=== PATIENT | female | born 1980 | race Caucasian/White ===

== ENCOUNTER 2018-11-05 07:49 | Inpatient (IN) | payer OTHER ==
[~2018-11-05] VITALS: Ht 170.2 cm; Wt 79.7 kg
[~2018-11-05 07:49] MED LIST: FOLI-49 PO; PRENAT PO
[2018-11-05 08:20] VITALS: Ht 170.2 cm; Wt 79.7 kg
[2018-11-05] MEDS ORDERED: LIDOCAINE 1% (MPF) 30 ML INJ INJ PRN (08:30)
[2018-11-05] MEDS ORDERED: BUTORPHANOL 2 MG INJ IV PRN (08:30)
[2018-11-05] MEDS ORDERED: CARBOPROST 250 MCG INJ IM PRN (08:30)
[2018-11-05] MEDS ORDERED: IBUPROFEN 600 MG TAB PO PRN (08:30)
[2018-11-05] MEDS ORDERED: METHYLERGONOVINE 0.2 MG INJ IM PRN (08:30)
[2018-11-05] MEDS ORDERED: OXYTOCIN 30 UNITS/LR 500 ML IV PRN (08:30)
[2018-11-05] MEDS ORDERED: OXYTOCIN 30 UNITS/LR 500 ML IV SCH ×4 (08:30→22:51)
[2018-11-05] MEDS ORDERED: MISOPROSTOL 200 MCG TAB PR PRN (08:30)
[2018-11-05] MEDS: LACTATED RINGER'S 1,000 ML IV SCH ×2 (10:43→15:49)
[2018-11-05 10:55] VITALS: BP 119/76; PULSE 72; RESP 18
--- NOTE | 2018-11-05 11:46 | HP ---
Date/Time of Note Date/Time of Note DATE: 11/05/18 TIME: 11:19 OB - History Hx of Present Free Text/Dictation This is a 37 years old female . 39 weeks and 1 day admitted to the hospital for induction of labor or rather augmentation ,since she has mild spontaneous contraction on her own, the indication and reason for induction ,she has a history of demise. Chief Complaint: 39 weeks 1 day admitted for induction of labor Estimated Due Date: Nov 11, 2018 : 7 Para: 5 Spontaneous : 1 Care: Good Care Ultrasounds: Normal mid trimester US Obstetrical Complications: None Medical Complications: None Past Family/Social History * Past Medical, Surgical, Family and Obstetric Histories reviewed from chart. Rubella: immune RPR/VDRL: Negative GBS Status: Negative HBsAG: Negative OB Admission Exam Vital Signs Vital Signs Vital Signs Date Temp Pulse Resp B/P (MAP) Pulse Ox O2 O2 Flow FiO2 Time Delivery Rate 11/05/18 98.3 72 18 119/76 Room Air 10:55 (90) Physical Exam HEENT: WNL Heart: Rhythm Normal Lungs: Clear, Equal Abdomen: WNL Extremities: Normal Reflexes: Normal Cervical Dilatation: 2cm Effacement: 75% Station: -2 Membranes: Intact Heart Rate: 130's Accelerations: Accelerations Present Decelerations: No Decelerations Varibility: Moderate Contractions on Admission: >10 Minutes Apart Intensity: Mild Last 72 hours Lab Results CBC & BMP 11/05/18 09:20 OB Assessment/Plan Reason for admission: other (39 weeks 1 day . Admitted for labor augmentation) Other plan: 37 years old . 39 weeks and 1 day . Admitted to the hospital for induction of labor. , On admission noted she has mild spontaneous contraction she may requires labor augmentation with Pitocin IV drip. The reason and indication for induction she has history of previous demise. ZITA NICHOLSON MD Nov 05, 2018 11:29
--- NOTE | 2018-11-05 15:12 | PREAC ---
Date/Time of Note Date/Time of Note DATE: 11/05/18 TIME: 15:11 Anesthesia Eval and Record Evaluation Time Pre-Procedure Interview DATE: 11/05/18 TIME: 15:11 Age 38 Sex female NPO: 8 hrs Preoperative diagnosis labor pain Planned procedure labor epidural Past Medical History Past Medical History: None Surgery & Anesthesia Issues No known issue Meds Anticoagulation: No Beta Chava within 24 hr: No Reason Beta Chava not given: Pt. not on B-Chava Reported Medications Folic Acid* (Folic Acid*) 1 Mg Tablet, 1 MG PO DAILY, TAB 09/20/15 Multivit/Min/Fol Ac/Iron/Pren* ( S*) 1 Tab Tab, 1 TAB PO DAILY, TAB 09/20/15 Current Medications Lactated Ringer's 1,000 ml @ 125 mls/hr Q8H IV Last administered on 11/05/18at 10:43; Admin Dose 125 MLS/HR; Start 11/05/18 at 08:22 Butorphanol Tartrate (Stadol) 2 mg Q2H PRN IV PAIN; Start 11/05/18 at 08:30 Lidocaine (Xylocaine 1% (Mpf)) 30 ml ONCE PRN INJ EPISIOTOMY; Start 11/05/18 at 08:30 Oxytocin/Lactated Ringer's 500 ml @ 500 mls/hr ONCE POST IV ; Start 11/05/18 at 08:30 Oxytocin/Lactated Ringer's 500 ml @ 125 mls/hr POST IV ; Start 11/05/18 at 08:30 Ibuprofen (Motrin) 600 mg ONCE PRN PO PAIN LEVEL 1-5; Start 11/05/18 at 08:30 Oxytocin/Lactated Ringer's 500 ml @ 0 mls/hr ONCE PRN IV VAGINAL BLEEDING; Start 11/05/18 at 08:30 Methylergonovine Maleate (Methergine) 0.2 mg ONCE PRN IM VAGINAL BLEEDING; Start 11/05/18 at 08:30 Carboprost Tromethamine (Hemabate) 250 mcg ONCE PRN IM VAGINAL BLEEDING; Start 11/05/18 at 08:30 Misoprostol (Cytotec) 1,000 mcg ONCE PRN DC VAGINAL BLEEDING; Start 11/05/18 at 08:30 Oxytocin/Lactated Ringer's 500 ml @ 0 mls/hr Q0M IV Last administered on 11/05/18at 10:45; Admin Dose 1 MLS/HR; Start 11/05/18 at 11:00 Meds reviewed: Yes Allergies Coded Allergies: No Known Allergy (Unverified , 11/23/15) Allergies Reviewed: Yes Labs/Studies Labs Reviewed: Reviewed by anesthesiologist Result Diagram: 11/05/18 0920 Laboratory Tests 11/05/18 09:20 Blood Bank Test 11/05/18 09:20 Antibody Screen NEGATIVE Blood Type A POSITIVE Rh Immune Globulin Candidate NO test: Positive Pre-procedure Exam Last vitals Vital Signs Date Temp Pulse Resp B/P (MAP) Pulse Ox O2 O2 Flow FiO2 Time Delivery Rate 11/05/18 98.3 72 18 119/76 Room Air 10:55 (90) Airway: Adequate mouth opening, Adequate thyromental dist Mallampati: Mallampati III Teeth: Normal Lung: Normal Heart: Normal ASA Physical Status ASA physical status: 2 Emergency: None Planned Anesthetic Neuraxial: Epidural Planned Pain Management Epidural, Parenteral pain med, Other neuraxial med Pre-operative Attestations Prior to commencing anesthesia and surgery, the patient was re-evaluated, there was verification of: *The patient's identity *The results of appropriate recent lab work and preoperative vital signs *The above evaluation not changing prior to induction *Anesthetic plan, risk benefits, alternative and complications discussed with patient/family; questions answered; patient/family understands, accepts and wishes to proceed. GOLDEN OJEDA MD Nov 05, 2018 15:12
[2018-11-05] MEDS ORDERED: DIPHENHYDRAMINE 50 MG INJ IV PRN (15:30)
[2018-11-05] MEDS ORDERED: ZOLPIDEM 5 MG TAB PO PRN (15:30)
[2018-11-05] MEDS ORDERED: NALOXONE (0.4 MG/ML) INJ IV PRN (15:30)
[2018-11-05] MEDS ORDERED: ONDANSETRON 4 MG INJ IV PRN ×2 (15:30→23:00)
[2018-11-05] MEDS ORDERED: HYDROmorphONE 0.5 MG/0.5 ML SYG IV PRN ×2 (15:30)
[2018-11-05] MEDS ORDERED: KETOROLAC 30 MG INJ IV PRN (15:30)
[2018-11-05] MEDS ORDERED: FENTAnyl 2MCG/ML-ROPIV 0.2% 100 ML BAG EPI SCH (15:30)
--- NOTE | 2018-11-05 20:49 | LDN ---
Date/Time of Note Date/Time of Note DATE: 11/05/18 TIME: 20:39 Delivery Summary Vacuum-assisted vaginal delivery of a baby boy, due to lack of sufficient maternal effort and early FHT deceleration with contractions. One attempt successful. Nuchal cord x1 tight around the baby's neck. Shoulders delivered without any difficulty. Rest of the baby's body followed. Cord clamped after stopped pulsation. Hernia vaginal inspection small first-degree vaginal laceration repaired with 3-0 Vicryl estimated blood loss 150-200 cc Weeks of Gestation 39 weeks 1 day Assisted Vaginal Delivery: Vacuum Placenta Delivered: Spontaneously Meconium: none Episiotomy: No Laceration repair: First-degree vaginal laceration repaired with 3-0 Vicryl Anesthesia type: Epidural Estimated blood loss: 200 Sponge & Needle done & correct: Yes All needle counts correct: Yes Any foreign bodies felt in the: No Infant Delivery Information Sex Sex: male Apgars 1 Minute: 5 5 Minute: 9 10 Minute: 9 Suctioning Nose & mouth suctioned at dolly: Yes Delee suction performed: No Umbilical Cord Umbilical cord with: 3 Vessels Cord presentations: nuchal cord Cord Blood was obtained: Yes ZITA NICHOLSON MD Nov 05, 2018 20:49
--- NOTE | 2018-11-05 21:44 | PAC ---
Date/Time of Note Date/Time of Note DATE: 11/05/18 TIME: 21:44 Post-Anesthesia Notes Post-Anesthesia Note Last documented vital signs Vital Signs Date Temp Pulse Resp B/P (MAP) Pulse Ox O2 O2 Flow FiO2 Time Delivery Rate 11/05/18 98.3 72 18 119/76 Room Air 10:55 (90) Activity: WNL Respiratory function: WNL Cardiovascular function: WNL Mental status: Baseline Pain reasonably controlled: Yes Hydration appropriate: Yes Nausea/Vomiting absent: Yes GOLDEN OJEDA MD Nov 05, 2018 21:44
[2018-11-05 22:30] VITALS: BP 134/79; PULSE 80; RESP 20
[2018-11-05] MEDS ORDERED: HYDROCODONE/APAP (5/325) TAB PO PRN ×2 (23:00)
[2018-11-05] MEDS ORDERED: ACETAMINOPHEN 325 MG TAB PO PRN (23:00)
[2018-11-05] MEDS: SENNA/DOCUSATE NA (8.6MG/50MG) TAB PO SCH (23:00)
[2018-11-05] MEDS ORDERED: OXYCODONE/ASPIRIN (4.88/325) TAB PO PRN ×2 (23:00)
--- NOTE | 2018-11-05 23:00 | NUR ---
received patient with the baby from LD accompanied by MICHAEL nurse eulalia.ID band checked & matched with baby. oriented to room & unit. reenforced baby safety agreement . teachings given prabhu the benefits of but patient wanted to do both breast & formula feeding as what she's been doing to her other childred . encourge mom to start first anytime & to call the nurse for help. patient verbalized understanding
[2018-11-05] MEDS: LANOLIN HPA 1 PKT TOP PRN (23:25)
[2018-11-05] MEDS: IBUPROFEN 600 MG TAB PO SCH (23:25)
[2018-11-05] MEDS: WITCH HAZEL/GLYCERIN PAD PR PRN (23:27)
[2018-11-05] MEDS: BENZOCAINE 20% 56 ML SPRAY TOP PRN (23:27)
[2018-11-06] MEDS: LACTATED RINGER'S 1,000 ML IV SCH ×3 (04:06→20:00)
--- NOTE | 2018-11-06 05:13 | NUR ---
eoss. stable. no respiratory distress.voided well 3x in the unit. ambulating well. moderate lochia. bonding well with baby . for cbc today
[2018-11-06] MEDS: IBUPROFEN 600 MG TAB PO SCH ×4 (05:50→23:57)
[2018-11-06 08:00] VITALS: BP 115/68; PULSE 69; RESP 18
--- NOTE | 2018-11-06 09:46 | QN ---
Documentation Comment Post normal vaginal delivery day 1 Afebrile Vital signs are stable Abdomen soft Uterus firm Lochia normal Extremities normal Ambulation encouraged ZITA NICHOLSON MD Nov 06, 2018 09:46
[2018-11-06] MEDS: SENNA/DOCUSATE NA (8.6MG/50MG) TAB PO SCH ×2 (09:49→21:00)
[2018-11-06] MEDS: PRENATAL VITAMIN PO SCH (09:49)
[2018-11-06] MEDS: FOLIC ACID 1 MG TAB PO SCH (09:49)
[2018-11-06 16:00] VITALS: BP 118/73; PULSE 77; RESP 19
--- NOTE | 2018-11-06 18:44 | NUR ---
EOSS:PATIENT IN STABLE CONDITION AND BONDING WELL WITH THE BABY.
[2018-11-06 19:40] VITALS: BP 122/72; PULSE 71; RESP 19
[2018-11-07] MEDS: LACTATED RINGER'S 1,000 ML IV SCH (04:00)
[2018-11-07] MEDS: IBUPROFEN 600 MG TAB PO SCH ×2 (05:44→12:02)
--- NOTE | 2018-11-07 06:38 | NUR ---
eoss. stable vital signs. afebrile. ambulating & voiding well. scanty lochia. moving towards goal
[2018-11-07 07:40] VITALS: BP 128/84; PULSE 64; RESP 18
[2018-11-07] MEDS ORDERED: MEASLES,MUMPS,RUBELLA VACCINE INJ SC* ONE (09:00)
[2018-11-07] MEDS: PRENATAL VITAMIN PO SCH (09:11)
[2018-11-07] MEDS: FOLIC ACID 1 MG TAB PO SCH (09:11)
[2018-11-07] MEDS: SENNA/DOCUSATE NA (8.6MG/50MG) TAB PO SCH (09:11)
[2018-11-07] MEDS: WITCH HAZEL/GLYCERIN PAD PR PRN (12:03)
[2018-11-07] MEDS: BENZOCAINE 20% 56 ML SPRAY TOP PRN (12:03)
[2018-11-07] MEDS: LANOLIN HPA 1 PKT TOP PRN (12:07)
--- NOTE | 2018-11-07 12:57 | PD.PPDC ---
GAMING ASSOCIATE Discharge Instruction Condition [id number] Patient Condition: [id number] Good Diet [id number] Diet: [id number] Resume Regular Diet Activity/Restrictions [id number] Activity: [id number] Normal Activity May Shower Follow-up Follow-up with Physician: 2, Week/Weeks Return to clinic for [id number] JOB TRAINING SPECIALIST Instructions: [id number] Fever greater than 101 [id number] OB Instructions: [id number] Breast Tenderness [id number] Surgical Instructions: [id number] Incisional Drainage ZITA NICHOLSON MD Nov 07, 2018 12:57
--- NOTE | 2018-11-07 13:06 | DS ---
Date/Time of Note Date/Time of Note DATE: 11/07/18 TIME: 13:02 Discharge Summary Admission/Discharge Info Admit Date/Time Nov 05, 2018 at 07:49 Discharge Date/Time November 07, 2018 at 1300 Discharge Diagnosis Post normal vaginal delivery day 2 Patient Condition: Good Consults None Procedures Normal vaginal delivery Hx of Present Illness 39 weeks . History of demise admitted to the hospital 39 weeks for induction of labor Hospital Course Satisfactory recovery uneventful Home Meds Reported Medications Folic Acid* (Folic Acid*) 1 Mg Tablet, 1 MG PO DAILY, TAB 09/20/15 Multivit/Min/Fol Ac/Iron/Pren* ( S*) 1 Tab Tab, 1 TAB PO DAILY, TAB 09/20/15 Follow-up Plan instruction given recommended to make appointment to be seen at the office in 2 weeks Primary Care Provider [facility] Time spent on discharge: < 30 minutes ZITA NICHOLSON MD Nov 07, 2018 13:06
--- NOTE | 2018-11-07 14:19 | NUR ---
PT DC'D HOME IN STABLE COND WITH BABY VIA WHEELCHAIR. DISCHARGE INST GIVEN AND PT VERBALIZED UNDERSTANDING OF ALL INFO GIVEN AND ALL QUESTIONS ANSWERED. Addendum: 11/07/18 at 1421 by GEORGINA LANZA RN Amended: Links added.
== END 2018-11-07 15:47 | disposition home or self-care (01) | DRG 807 ==
LOC: L-D 07:49 → PP1 22:29
PROVIDERS: ADMIT Obstetrics & Gynecology; ATTEND Obstetrics & Gynecology
PROC: 0HQ9XZZ Repair Perineum Skin, External Approach (ICD-10-PCS; 2018-11-05)
PROC: 4A1HXCZ Monitoring of Products of Conception, Cardiac Rate, External Approach (ICD-10-PCS; 2018-11-05)
PROC: 10D07Z6 Extraction of Products of Conception, Vacuum, Via Natural or Artificial Opening (ICD-10-PCS; principal; 2018-11-05 08:00)
DX: O76 Abnormality in fetal heart rate and rhythm complicating labor and delivery (principal); Z37.0 Single live birth; O70.0 First degree perineal laceration during delivery; O69.1XX0 Labor and delivery complicated by cord around neck, with compression, not applicable or unspecified; O75.81 Maternal exhaustion complicating labor and delivery; Z3A.39 39 weeks gestation of pregnancy
CPT/HCPCS: 62319; 76815; 85025; 85610; 85730; 86592; 86850; 86900; 86901; 87340; 99464; J2210; J2590; J3010; J7120